=== PATIENT | male | born 1990 | race Caucasian/White ===

== ENCOUNTER 2017-07-08 21:43 | Emergency (ER) | END 2017-07-09 01:46 | disposition home or self-care (01) ==

== ENCOUNTER 2017-07-22 21:22 | Emergency (ER) | END 2017-07-22 23:56 | disposition home or self-care (01) ==

== ENCOUNTER 2018-03-24 21:09 | Emergency (ER) | payer OTHER ==
[~2018-03-24] VITALS: Ht 170.2 cm; Wt 76.4 kg
[~2018-03-24 21:09] MED LIST: FIORICET PO; IBUP-1542 PO; NAPR-985 PO
[2018-03-24 21:29] VITALS: Ht 170.2 cm; Wt 76.4 kg
[2018-03-24] MEDS ORDERED: KETOROLAC 30 MG INJ IV STA (23:54)
[2018-03-25] MEDS ORDERED: SOD CHLORIDE 0.9% 1,000 ML IV ONE
[2018-03-25] MEDS ORDERED: AMOX500T PO (01:27)
[2018-03-25] MEDS ORDERED: ACET-141 PO (01:28)
[2018-03-25] MEDS ORDERED: IBUP-1542 PO (01:28)
[2018-03-25] MEDS ORDERED: D-ME118S24 PO (01:28)
[2018-03-25 01:50] VITALS: BP 119/76; PULSE 98; RESP 20
--- NOTE | 2018-03-25 02:32 | ERD ---
ER Documentation Chief Complaint Chief Complaint flu-liked symptoms x 1week HPI 27-year-old male presents for cough and sore throat times 5 days. Cough is noted to be productive of yellowish phlegm. Sore throat is rated to be 7 out of 10. He is also been having subjective fevers at home. There is also associated body aches and headache. The headache is mostly on the frontal side. He took Robitussin, Motrin, Tylenol with only mild relief. Patient has been eating and drinking normally. Denies chest pain or shortness of breath. Denies abdominal pain, nausea, vomiting. ROS All systems reviewed and are negative except as per history of present illness. Medications Home Meds Active Scripts Acetaminophen* (Acetaminophen*) 500 MG Extra Strength Tablet, 500 MG PO Q4H PRN for PAIN AND OR ELEVATED TEMP, #30 TAB Prov:RADHA MOSS 03/25/18 Ibuprofen* (Motrin*) 600 Mg Tab, 600 MG PO Q6H PRN for PAIN AND OR ELEVATED TEMP, #30 TAB Prov:AJAYRADHA 03/25/18 D-Methorphan Hb/P-Epd HCl/Bpm (Qnkfdhnowa-Wdqhuwdflhu-Ie Syr) 118 Ml Syrup, 5 ML PO Q4H PRN for COUGH, #1 BOTTLE Prov:AJAYRADHA 03/25/18 Amoxicillin Trihydrate (Amoxicillin) 500 Mg Tablet, 500 MG PO Q8 for sinusitis for 5 Days, #15 TAB Prov:AJAYRADHA 03/25/18 Naproxen* (Naprosyn*) 500 Mg Tablet, 500 MG PO BID PRN for PAIN AND/OR INFLAMMATION, #30 TAB Prov:NATHALIA MCGEE PA-C 07/22/17 Acetamin/Butalbital/Caffeine* (Fioricet*) [id number] Tab, 1 TAB PO Q6H PRN for PAIN, #30 TAB Prov:PAYAL VELAZQUEZ 07/09/17 Ibuprofen* (Motrin*) 600 Mg Tab, 600 MG PO Q6, #30 TAB Prov:PAYAL VELAZQUEZ 07/09/17 Allergies Allergies: Coded Allergies: No Known Drug Allergies (Verified Allergy, Mild, 03/23/09) PMhx/Soc Medical and Surgical Hx: pt denies Medical Hx, pt denies Surgical Hx History of Surgery: No Anesthesia Reaction: No Hx Neurological Disorder: No Hx Respiratory Disorders: No Hx Cardiac Disorders: No Hx Miscellaneous Medical Probl: No Hx Alcohol Use: No Hx Substance Use: No Hx Tobacco Use: No Smoking Status: Never smoker Physical Exam Vitals Vital Signs Date Temp Pulse Resp B/P (MAP) Pulse Ox O2 O2 Flow FiO2 Time Delivery Rate 03/25/18 98.9 98 20 119/76 100 Room Air 01:50 (90) 03/24/18 102.1 126 22 125/84 99 21:29 (98) Physical Exam Const: No acute distress Head: Atraumatic, mild tenderness to the frontal and perinasal sinuses Eyes: Normal Conjunctiva ENT: Normal External Ears, bilateral tympanic membrane intact without erythema or bulging noted, nose and Mouth examination normal, no tonsillar swelling or exudate noted Neck: Full range of motion. No meningismus. Resp: Clear to auscultation bilaterally, no wheezing, rales, rhonchi Cardio: Regular rate and rhythm, no murmurs Skin: No petechiae or rashes Ext: No cyanosis, or edema Neur: Awake and alert Psych: Normal Mood and Affect Results 24 hrs Current Medications Medications Dose Sig/Jose Ramon Start Time Status Last (Trade) Ordered Route PRN Stop Time Admin Dose Reason Admin Sodium 1,000 ml @ Q1H ONCE 03/25/18 DC 03/25/18 Chloride 1,000 mls/hr IV 00:00 03/25/18 00:07 00:59 Ketorolac 30 mg ONCE STAT 03/24/18 DC 03/25/18 Tromethamine IV 23:54 03/24/18 00:08 (Toradol) 23:55 Procedures/MDM Medical Decision Making: Differential diagnosis includes but not limited to upper respiratory infection, pneumonia, sepsis, bacterial sinusitis. Patient appeared well on physical examination, nontoxic appearing. Lungs were clear to auscultation bilaterally. There is low suspicion for pneumonia, sepsis. Given respiratory symptoms and headache with tenderness to palpation of the frontal and johny-nasal sinuses, patient likely has a bacterial sinusitis. Patient did present to the ER with a 102.1 fever with tachycardia of 126. Patient was given IV fluids and Toradol. Patient symptoms improved with treatment with improvement in his fever and tachycardia. Patient given prescription for Tylenol, Motrin, Bromfed, amoxicillin. Patient advised to follow up with PCP in 1-2 days. Patient advised to return to ED for new or worsening symptoms. Patient stable on discharge from the ED. Disclaimer: Inadvertent spelling and grammatical errors are likely due to EHR/dictation software use and do not reflect on the overall quality of patient care. Also, please note that the electronic time recorded on this note does not necessarily reflect the actual time of the patient encounter. Departure Diagnosis: Primary Impression: Sinusitis Condition: Fair Patient Instructions: Sinusitis, Abkirt Tx Additional Instructions: Call your primary care doctor TOMORROW for an appointment during the next 1-2 days.See the doctor sooner or return here if your condition worsens before your appointment time. RADHA MOSS DO Mar 25, 2018 02:32
== END 2018-03-25 01:52 | disposition home or self-care (01) ==
LOC: FTE 21:09
DX: J32.9 Chronic sinusitis, unspecified (principal)
CPT/HCPCS: 87400; J1885; J7030; 96374

== ENCOUNTER 2018-05-04 21:07 | Emergency (ER) | payer OTHER ==
[~2018-05-04] VITALS: Ht 170.2 cm; Wt 76.6 kg
[~2018-05-04 21:07] MED LIST changes: +ACET-141 PO; +AMOX500T PO; +D-ME118S24 PO
[2018-05-04 21:11] VITALS: BP 136/72; PULSE 95; RESP 18; Ht 170.2 cm; Wt 76.6 kg
[2018-05-05] MEDS ORDERED: morphine 4 MG/ML VIAL IM STA (00:17)
[2018-05-05] MEDS ORDERED: KETOROLAC 30 MG INJ IM STA (00:17)
--- NOTE | 2018-05-05 00:21 | ERD ---
ER Documentation Chief Complaint Chief Complaint back pain x 1 week, states was lifting water galloons. HPI This is a 27-year-old male who presents emergency department with complaints of mid back pain, lower back pain for about a week. Stated this happened after lifting water gallons. Denies headache, head injury, blurry vision, dizziness, neck pain, neck stiffness, throat pain, difficulty swallowing, difficulty breathing when lying flat, abdominal pain, nausea, vomiting, constipation, diarrhea, urinary symptoms, difficulty walking, loss of bowel or bladder control, trauma, injury, falls, numbness or tingling sensation, recent surgery in the last three weeks, recent travel, recent exposure to illness, recent antibiotic use in the last three months, fever, chills, seizures. ROS All systems reviewed and are negative except as per history of present illness. Medications Home Meds Active Scripts Metaxalone* (Skelaxin*) 800 Mg Tablet, 800 MG PO TID PRN for MUSCLE SPASMS, #15 TAB Prov:PASILAXUCHIKIAR F 05/05/18 Ibuprofen* (Motrin*) 800 Mg Tab, 800 MG PO Q6H PRN for PAIN AND OR ELEVATED TEMP, #30 TAB Prov:XAVIERXUNICOLE F 05/05/18 Acetaminophen* (Acetaminophen*) 500 MG Extra Strength Tablet, 500 MG PO Q4H PRN for PAIN AND OR ELEVATED TEMP, #30 TAB Prov:RADHA MOSS DO 03/25/18 Ibuprofen* (Motrin*) 600 Mg Tab, 600 MG PO Q6H PRN for PAIN AND OR ELEVATED TEMP, #30 TAB Prov:RADHA MOSS DO 03/25/18 D-Methorphan Hb/P-Epd HCl/Bpm (Nbhgapdvhg-Rkkuuoqaumg-Eg Syr) 118 Ml Syrup, 5 ML PO Q4H PRN for COUGH, #1 BOTTLE Prov:RADHA MOSS DO 03/25/18 Amoxicillin Trihydrate (Amoxicillin) 500 Mg Tablet, 500 MG PO Q8 for sinusitis for 5 Days, #15 TAB Prov:RADHA MOSS DO 03/25/18 Naproxen* (Naprosyn*) 500 Mg Tablet, 500 MG PO BID PRN for PAIN AND/OR INFLAMMATION, #30 TAB Prov:NATHALIA MCGEE PA-C 07/22/17 Acetamin/Butalbital/Caffeine* (Fioricet*) [id number] Tab, 1 TAB PO Q6H PRN for PAIN, #30 TAB Prov:PAYAL VELAZQUEZ 07/09/17 Ibuprofen* (Motrin*) 600 Mg Tab, 600 MG PO Q6, #30 TAB Prov:PAYAL VELAZQUEZ 07/09/17 Allergies Allergies: Coded Allergies: No Known Drug Allergies (Verified Allergy, Mild, 03/23/09) PMhx/Soc Medical and Surgical Hx: pt denies Medical Hx, pt denies Surgical Hx History of Surgery: No Anesthesia Reaction: No Hx Neurological Disorder: No Hx Respiratory Disorders: No Hx Cardiac Disorders: No Hx Miscellaneous Medical Probl: No Hx Alcohol Use: No Hx Substance Use: No Hx Tobacco Use: No Smoking Status: Never smoker Physical Exam Vitals Physical Exam Const: No acute distress Head: Atraumatic Eyes: Normal Conjunctiva ENT: Normal External Ears, Nose and Mouth. Neck: Full range of motion. No meningismus. Resp: Clear to auscultation bilaterally Cardio: Regular rate and rhythm, no murmurs Abd: Soft, non tender, non distended. Normal bowel sounds Skin: No petechiae or rashes Back: No midline or flank tenderness. T-spine/L-spine are midline without swelling/bulging/point of tenderness but has pain to range of motion. C-spine is in midline with good and full range of motion and is no swelling/defor mity/bulging/point of tenderness. Bilateral hips are stable and unremarkable. No saddle anesthesia. No neurovascular deficit. No neurological deficits. Ambulatory with steady gait. Ext: No cyanosis, or edema Neur: Awake and alert. No neurological deficits. Psych: Normal Mood and Affect Results 24 hrs Current Medications Medications Dose Sig/Jose Ramon Start Time Status Last (Trade) Ordered Route PRN Stop Time Admin Dose Reason Admin Ketorolac 30 mg ONCE STAT 05/05/18 DC 05/05/18 Tromethamine IM 00:17 00:31 (Toradol) 05/05/18 00:18 Morphine 4 mg ONCE STAT 05/05/18 DC 05/05/18 Sulfate IM 00:17 00:31 (morphine) 05/05/18 00:18 Procedures/MDM Diagnostic tests: X-ray of the C-spine: No evidence of fracture. X-ray of the L-spine: No evidence of acute fracture. Treatment: Toradol IM. Morphine IM. Re-evaluation: Denies pain. No saddle anesthesia. No neurovascular deficits. No neurological deficit. Ambulatory with steady gait. Differential diagnosis I have low suspicion for C-spine fracture, T-spine fracture, L-spine fracture, cauda equina syndrome, compartment syndrome. Final diagnosis: Back pain. Back strain. Muscular skeletal pain. Muscle spasm. Prescription: Motrin. Skelaxin. Follow-up with PCP in the next 24-48 hours. Come back here in the emergency department for any new symptoms or any worsening symptoms. All questions and concerns were answered. Patient and family members verbalized understanding and agreed with plan of care. Hemodynamically stable on discharge. Departure Diagnosis: Primary Impression: Back pain Additional Impressions: Musculoskeletal pain Muscle spasm Condition: Stable Additional Instructions: Follow-up with PCP in the next 24-48 hours. Come back here in the emergency department for any new symptoms or any worsening symptoms. NICOLE OLIVA May 05, 2018 00:21
[2018-05-05] MEDS ORDERED: META-121 PO (02:18)
[2018-05-05] MEDS ORDERED: IBUP800T48 PO (02:18)
== END 2018-05-05 02:48 | disposition home or self-care (01) ==
LOC: FTE 21:07
DX: M54.5 Low back pain (principal); M62.830 Muscle spasm of back
CPT/HCPCS: 72072; 72100; 96372; J1885; J2270; Z7502